=== PATIENT | male | born 1985 | race American Indian/Alaskan Native ===

== ENCOUNTER 2018-01-08 16:07 | Emergency (ER) | payer OTHER ==
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
[2018-01-08] MEDS ORDERED: MOTRIN PO ONE (17:49)
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
--- NOTE | 2018-01-08 19:40 | Cat Scan Report ---
FINAL REPORT EXAM: CT ABDOMEN PELVIS WO CON HISTORY: LLQ tenderness TECHNIQUE: Helical CT scan through the abdomen and pelvis without contrast. Images are reconstructed in the sagittal and coronal planes. PRIORS: None. FINDINGS: Solid organ and bowel evaluation is limited without intravenous contrast. Bowel evaluation is limited without oral contrast. The lung bases are clear. There are several small collections of free peritoneal air along the right and transverse colon. There is a large amount of stool throughout the colon but especially in the right and transverse colon and in the rectum. The sigmoid colon is tortuous. There is a large amount of stool in the rectum. A normal-appearing appendix is identified. The liver, gallbladder, pancreas, spleen and adrenal glands appear normal. The kidneys appear grossly normal. The pelvic organs appear grossly normal. The stomach appears grossly within normal limits. There is a relatively large amount of food in the stomach. The abdominal aorta has a normal diameter. There is degenerative disc disease at L5-S1. There is mild lower thoracic spondylosis IMPRESSION: 1. Findings are consistent with bowel perforation around the area of hepatic flexure. The sigmoid colon is tortuous. 2. Large amount of stool throughout the colon is consistent with constipation. 3. Relatively large amount of fluid in the stomach. I gave a verbal report by phone to Maylin CABRERA at 7:28 p.m. eastern daylight time.
[2018-01-08] MEDS ORDERED: ZOFRAN ONE (20:16)
[2018-01-08] MEDS ORDERED: MORPHINE ONE (20:17)
[2018-01-08] MEDS ORDERED: NACL 0.9% 1000 ML 2,000 ML ONE (20:17)
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
[2018-01-08] MEDS ORDERED: NACL 0.9% 1000 ML 1,000 ML IV ONE (20:23)
[2018-01-08] MEDS ORDERED: MORPHINE IV ONE (20:23)
[2018-01-08] MEDS ORDERED: ZOFRAN IM ONE (20:23)
[2018-01-08] MEDS ORDERED: NACL 0.9% 1000 ML 2,000 ML IV ONE (20:23)
[2018-01-08 20:36] VITALS: BP 127/78
[2018-01-08] MEDS ORDERED: ZOSYN/NS 4.5GM/100ML 4.5 GM/100 ML VIAL IV SCH (21:30)
== END 2018-01-08 21:45 | disposition other institution (70) ==
LOC: ED 16:07
DX: R07.89 Other chest pain (principal); E11.9 Type 2 diabetes mellitus without complications; V89.2XXA Person injured in unspecified motor-vehicle accident, traffic, initial encounter; Y93.89 Activity, other specified; Y92.89 Other specified places as the place of occurrence of the external cause; Y99.8 Other external cause status
CPT/HCPCS: 71046; 74176; 93005; 93010; 96361; 96372; 96374; 99284; J2270; J2405; J2543; J7030